=== PATIENT | male | born 1955 | race Caucasian/White ===

== ENCOUNTER 2017-03-17 07:55 | Outpatient (RCR) | payer BC, OTHER ==
[2017-01-29 16:40] LABS: BLOOD UREA NITROGEN 13 MG/DL (7-18); BUN/CREATININE RATIO 16; CREATININE SERUM 0.82 MG/DL (0.60-1.30); GFR ESTIMATED > 60
== END 2017-04-29 | disposition home or self-care (01) ==
LOC: ONC 07:55
PROVIDERS: ATTEND Radiology Radiation Oncology
DX: Z51.0 Encounter for antineoplastic radiation therapy (principal); C20 Malignant neoplasm of rectum
CPT/HCPCS: 77301; 77334; 77336; 77338; 77385; 77386; 77470; 82565; 84520; 99214

== ENCOUNTER → 2019-02-10 | Outpatient (CLI) | payer BC ==
[~2019-02-10] MED LIST: CATHETER FLUSH 10 ML SYR IV PRN; DIATRIZOATE MEGLUM/SODIUM 37% 120 ML (GASTROGRAFIN) PO ONE; HOLD METFORMIN - RECEIVED CONTRAST 20 ML VIAL IV SCH; IOHEXOL 350 MG/ML 100 ML (OMNIPAQUE 350) VIAL IV ONE; NS 100 ML (IVPB) BAG IV ONE
[2019-02-10 08:55] LABS: BASOPHILS % (AUTO) 0 % (0-10); EOSINOPHILS % (AUTO) 6 % (0-10); HEMATOCRIT 44 % (40-54); HEMOGLOBIN 14.7 G/DL (13.3-17.7); LYMPHOCYTES # (AUTO) 0.8 X 10^3 (1.0-4.0); LYMPHOCYTES % (AUTO) 16 % (12-44); MEAN CORPUSCULAR HEMOGLOBIN 29 PG (25-34); MEAN CORPUSCULAR HGB CONC 34 G/DL (32-36); MEAN CORPUSCULAR VOLUME 87 FL (80-99); MEAN PLATELET VOLUME 9.5 FL (7.4-10.4); MONOCYTES # (AUTO) 0.3 X 10^3 (0.0-1.0); MONOCYTES % (AUTO) 6 % (0-12); NEUTROPHILS # (AUTO) 3.5 X 10^3 (1.8-7.8); NEUTROPHILS % (AUTO) 72 % (42-75); PLATELET COUNT 187 10^3/uL (130-400); RED CELL DISTRIBUTION WIDTH 14.3 % (10.0-14.5); WHITE BLOOD COUNT 4.9 10^3/uL (4.3-11.0)
[2019-02-10 08:56] LABS: EOSINOPHILS # (AUTO) 0.3 10^3/uL (0.0-0.3)
[2019-02-10 10:39] LABS: ALANINE AMINOTRANSFERASE 51 U/L (0-55); ALBUMIN 4.3 GM/DL (3.2-4.5); ALKALINE PHOSPHATASE 86 U/L (40-136); BILIRUBIN,TOTAL 0.5 MG/DL (0.1-1.0); BUN/CREATININE RATIO 19; CALCIUM 8.9 MG/DL (8.5-10.1); CARBON DIOXIDE 26 MMOL/L (21-32); CHLORIDE 100 MMOL/L (98-107); CREATININE SERUM 0.68 MG/DL (0.60-1.30); GFR ESTIMATED > 60; GLUCOSE 229 MG/DL (70-105); POTASSIUM 4.1 MMOL/L (3.6-5.0); SODIUM 139 MMOL/L (135-145)
--- NOTE | 2019-02-10 11:29 | Diagnostic Imaging Report ---
PROCEDURE: CT chest, abdomen, and pelvis with contrast. TECHNIQUE: Multiple contiguous axial images were obtained through the chest, abdomen, and pelvis after the administration of intravenous contrast. Auto Exposure Controls were utilized during the CT exam to meet ALARA standards for radiation dose reduction. INDICATION: Rectal carcinoma, followup. COMPARISON: Correlation is made with prior CT from 08/24/2018. CT CHEST: Right chest wall port appears to have its tip in the lower right internal jugular vein near the confluence with the SVC. No axillary lymphadenopathy is identified. There are calcified lymph nodes in the mediastinum in the right paratracheal and subcarinal location consistent with prior granulomatous exposure. No noncalcified mediastinal or hilar lymphadenopathy is identified. No pericardial or pleural fluid is identified. Pulmonary parenchymal evaluation demonstrates calcified granuloma in the superior segment of the left lower lobe. There is a tiny 2-3 mm noncalcified nodular density posterolateral left lower lobe, image #103 not appreciably changed from prior exam. No new nodules are seen to suggest metastatic disease. The bony structures are nonacute. IMPRESSION: Stable CT chest since study from 08/24/2018. No thoracic lymphadenopathy or evidence of pulmonary metastatic disease is identified. CT ABDOMEN AND PELVIS: Mild generalized hepatic steatosis is seen. No discrete liver mass is detected. The gallbladder is unremarkable. The pancreas and spleen are unremarkable. Adrenal glands are unremarkable. Small cortical low density anterior aspect of the upper pole left kidney is stable and most consistent with a small cyst. Postsurgical changes to the anterior cortex of the right kidney are noted and appear stable. No recurrent renal mass is identified. The aorta is non-aneurysmal. Central retroperitoneum is unremarkable for lymphadenopathy. No mesenteric lymphadenopathy is identified. Postsurgical changes of rectosigmoid resection are again noted with left lower quadrant ostomy. Presacral soft tissue thickening appears to be stable when compared with prior exam and again is likely post-therapeutic. No discrete mass is seen. No inguinal or iliac lymphadenopathy is identified. There is no ascites. Bladder is unremarkable. IMPRESSION: Overall stable CT of the abdomen and pelvis when compared with prior exam from 08/24/2018. No abdominal or pelvic lymphadenopathy or evidence of metastatic disease or tumor recurrence is identified. Dictated by: Dictated on workstation # [id number]
== END ==
LOC: RAD FS 08:12
PROVIDERS: ATTEND Internal Medicine Hematology & Oncology
DX: C20 Malignant neoplasm of rectum (principal); Z98.890 Other specified postprocedural states
CPT/HCPCS: 36415; 71260; 74177; 80053; 82378; 85025

== ENCOUNTER → 2019-08-02 | Outpatient (CLI) | payer BC ==
[~2019-08-02] MED LIST changes: -CATHETER FLUSH 10 ML SYR IV PRN; -DIATRIZOATE MEGLUM/SODIUM 37% 120 ML (GASTROGRAFIN) PO ONE; -IOHEXOL 350 MG/ML 100 ML (OMNIPAQUE 350) VIAL IV ONE; -NS 100 ML (IVPB) BAG IV ONE
[2019-08-02 09:54] LABS: HEMATOCRIT 44 % (40-54); HEMOGLOBIN 14.4 G/DL (13.3-17.7); LYMPHOCYTES % (AUTO) 18 % (12-44); MEAN CORPUSCULAR HEMOGLOBIN 29 PG (25-34); MEAN CORPUSCULAR HGB CONC 33 G/DL (32-36); MEAN CORPUSCULAR VOLUME 88 FL (80-99); MEAN PLATELET VOLUME 9.4 FL (7.4-10.4); MONOCYTES % (AUTO) 6 % (0-12); NEUTROPHILS % (AUTO) 69 % (42-75); PLATELET COUNT 216 10^3/uL (130-400); RED CELL DISTRIBUTION WIDTH 14.3 % (10.0-14.5); WHITE BLOOD COUNT 4.4 10^3/uL (4.3-11.0)
[2019-08-02 09:55] LABS: BASOPHILS % (AUTO) 1 % (0-10); EOSINOPHILS # (AUTO) 0.2 10^3/uL (0.0-0.3); EOSINOPHILS % (AUTO) 6 % (0-10); LYMPHOCYTES # (AUTO) 0.8 X 10^3 (1.0-4.0); MONOCYTES # (AUTO) 0.3 X 10^3 (0.0-1.0)
[2019-08-02 10:07] LABS: POTASSIUM 4.1 MMOL/L (3.6-5.0); SODIUM 140 MMOL/L (135-145)
[2019-08-02 10:08] LABS: ALANINE AMINOTRANSFERASE 35 U/L (0-55); ALBUMIN 4.2 GM/DL (3.2-4.5); ALKALINE PHOSPHATASE 82 U/L (40-136); BILIRUBIN,TOTAL 0.5 MG/DL (0.1-1.0); BUN/CREATININE RATIO 16; CARBON DIOXIDE 24 MMOL/L (21-32); CHLORIDE 103 MMOL/L (98-107); GFR ESTIMATED > 60; GLUCOSE 221 MG/DL (70-105); TOTAL PROTEIN 7.1 GM/DL (6.4-8.2)
[2019-08-02] MEDS: CATHETER FLUSH 10 ML SYR IV PRN (11:04)
[2019-08-02] MEDS: DIATRIZOATE MEGLUM/SODIUM 37% 120 ML (GASTROGRAFIN) PO ONE (11:04)
[2019-08-02] MEDS: IOHEXOL 350 MG/ML 150 ML (OMNIPAQUE 350) VIAL IV ONE (11:04)
[2019-08-02] MEDS: NS 100 ML (IVPB) BAG IV ONE (11:04)
--- NOTE | 2019-08-02 11:42 | Diagnostic Imaging Report ---
PROCEDURE: CT chest, abdomen, and pelvis with contrast. TECHNIQUE: Multiple contiguous axial images were obtained through the chest, abdomen, and pelvis after the administration of intravenous contrast. Auto Exposure Controls were utilized during the CT exam to meet ALARA standards for radiation dose reduction. INDICATION: Malignant neoplasm of the rectum. The study is performed for follow-up. COMPARISON: Correlation is made with prior CT from 02/10/2019. CT CHEST: Right chest wall port remains in place. No axillary lymphadenopathy is seen. Previously noted calcified lymph nodes in the manuel and mediastinum are again noted. No noncalcified enlarged nodes are seen. There is no pericardial or pleural fluid. Tiny subpleural nodule in the left lower lobe is stable. No new mass is seen. No infiltrate is identified. IMPRESSION: Continued stable CT chest since exam from 02/10/2019. There is no evidence of thoracic lymphadenopathy or pulmonary metastatic disease. CT ABDOMEN AND PELVIS: Hepatic steatosis is again seen. There is no discrete liver mass identified. No biliary ductal dilatation is identified. The gallbladder is unremarkable. Pancreas and spleen are unremarkable. No adrenal mass is seen. Postsurgical changes to the right kidney anteriorly are again noted. Tiny cortical low density in the upper pole of the left kidney is stable. Aorta is non-aneurysmal. Postsurgical changes in the pelvis are again noted. There has been resection of the rectum with left lower quadrant ostomy. Presacral soft tissue thickening is similar to prior exam. No definite pelvic lymphadenopathy is seen. No central retroperitoneal or mesenteric lymphadenopathy is seen. Bladder is unremarkable. Bony structures are nonacute. IMPRESSION: Stable CT abdomen and pelvis since exam from 02/10/2019. There are post-therapeutic changes, as described. No definite abdominal or pelvic lymphadenopathy or evidence of metastatic disease is detected. Dictated by: Dictated on workstation # [id number]
== END ==
LOC: RAD FS 09:08
PROVIDERS: ATTEND Internal Medicine Hematology & Oncology
DX: C20 Malignant neoplasm of rectum (principal); Z95.828 Presence of other vascular implants and grafts; Z98.890 Other specified postprocedural states
CPT/HCPCS: 36415; 71260; 74177; 80053; 82378; 85025

== ENCOUNTER → 2020-01-31 | Outpatient (CLI) | payer BC ==
[~2020-01-31] MED LIST changes: +CATHETER FLUSH 10 ML SYR IV PRN; +DIATRIZOATE MEGLUM/SODIUM 37% 120 ML (GASTROGRAFIN) PO ONE; +IOHEXOL 350 MG/ML 100 ML (OMNIPAQUE 350) VIAL IV ONE; +NS 100 ML (IVPB) BAG IV ONE
[2020-01-31 10:15] LABS: HEMATOCRIT 42 % (40-54); HEMOGLOBIN 14.3 G/DL (13.3-17.7); MEAN CORPUSCULAR HEMOGLOBIN 29 PG (25-34); MEAN CORPUSCULAR HGB CONC 34 G/DL (32-36); MEAN CORPUSCULAR VOLUME 86 FL (80-99); WHITE BLOOD COUNT 4.3 10^3/uL (4.3-11.0)
[2020-01-31 10:16] LABS: BASOPHILS % (AUTO) 1 % (0-10); EOSINOPHILS # (AUTO) 0.2 10^3/uL (0.0-0.3); EOSINOPHILS % (AUTO) 4 % (0-10); LYMPHOCYTES # (AUTO) 0.9 X 10^3 (1.0-4.0); LYMPHOCYTES % (AUTO) 21 % (12-44); MEAN PLATELET VOLUME 9.5 FL (7.4-10.4); MONOCYTES # (AUTO) 0.3 X 10^3 (0.0-1.0); MONOCYTES % (AUTO) 6 % (0-12); NEUTROPHILS # (AUTO) 2.9 X 10^3 (1.8-7.8); NEUTROPHILS % (AUTO) 68 % (42-75); PLATELET COUNT 230 10^3/uL (130-400); RED CELL DISTRIBUTION WIDTH 14.2 % (10.0-14.5)
[2020-01-31 10:31] LABS: POTASSIUM 4.1 MMOL/L (3.6-5.0); SODIUM 138 MMOL/L (135-145)
[2020-01-31 10:32] LABS: ALANINE AMINOTRANSFERASE 25 U/L (0-55); ALBUMIN 4.4 GM/DL (3.2-4.5); ALKALINE PHOSPHATASE 79 U/L (40-136); BILIRUBIN,TOTAL 0.7 MG/DL (0.1-1.0); BUN/CREATININE RATIO 18; CALCIUM 9.1 MG/DL (8.5-10.1); CARBON DIOXIDE 25 MMOL/L (21-32); CHLORIDE 101 MMOL/L (98-107); CREATININE SERUM 0.73 MG/DL (0.60-1.30); GFR ESTIMATED > 60; GLUCOSE 163 MG/DL (70-105); TOTAL PROTEIN 6.9 GM/DL (6.4-8.2)
--- NOTE | 2020-01-31 11:44 | Diagnostic Imaging Report ---
EXAMINATION: CT Chest, Abdomen and Pelvis with intravenous contrast. TECHNIQUE: Multiple contiguous axial images were obtained through the chest, abdomen and pelvis after the uneventful administration of intravenous contrast. All CT scans use one or more of the following dose optimizing techniques: automated exposure control, MA and/or KvP adjustment based on a patient size and exam type, or iterative reconstruction. HISTORY: Malignant neoplasm of the rectum. Currently asymptomatic. COMPARISON: 08/02/2019. FINDINGS: CT CHEST: The heart size is within normal limits. No pericardial effusion is present. There is no mediastinal, hilar, or axillary lymphadenopathy. Calcified mediastinal and left hilar lymph nodes are present. The lungs demonstrate no pulmonary nodules or masses. Scattered calcified granulomas are noted. There are no focal areas of consolidation. No central endobronchial obstructing lesions are identified. There are no pleural effusions or pneumothorax. The osseous structures demonstrate no acute abnormalities. CT ABDOMEN AND PELVIS: There is hepatic steatosis. No focal hepatic lesions are seen. The gallbladder is unremarkable. The portal vein is patent. The spleen, pancreas, adrenal glands, and kidneys have a normal appearance. There is no pathologically enlarged mesenteric or retroperitoneal adenopathy. Postsurgical changes of left hemicolectomy are again visualized with colostomy in the left hemiabdomen. Nonspecific presacral soft tissue thickening is again visualized, not significantly changed compared to the prior exam. The bowel loops are nondilated. The appendix is visualized and has a normal appearance. There is no free fluid or free air. The osseous structures demonstrate no acute abnormalities. There is calcified aortic and iliac atherosclerotic plaque without aneurysm. Ureters and bladder have a normal appearance. There is no free air, loculated collection, or adenopathy in the pelvis. IMPRESSION: 1. Posttreatment changes are again visualized of left hemicolectomy and colostomy in the left hemiabdomen. Stable nonspecific presacral soft tissue thickening is present. No evidence of pathologically enlarged lymphadenopathy or metastatic disease in the chest, abdomen or pelvis. 2. Hepatic steatosis. Dictated by: Dictated on workstation # [id number]
== END ==
LOC: RAD FS 09:35
PROVIDERS: ATTEND Internal Medicine Hematology & Oncology
DX: C20 Malignant neoplasm of rectum (principal); K76.0 Fatty (change of) liver, not elsewhere classified
CPT/HCPCS: 36415; 71260; 74177; 80053; 82378; 85025

== ENCOUNTER → 2020-06-27 | Outpatient (CLI) | payer BC ==
[~2020-06-27] MED LIST changes: -DIATRIZOATE MEGLUM/SODIUM 37% 120 ML (GASTROGRAFIN) PO ONE
[2020-06-27 10:21] LABS: BUN/CREATININE RATIO 18; CALCIUM 8.8 MG/DL (8.5-10.1); CARBON DIOXIDE 24 MMOL/L (21-32); CHLORIDE 100 MMOL/L (98-107); CREATININE SERUM 0.74 MG/DL (0.60-1.30); GFR ESTIMATED > 60; GLUCOSE 169 MG/DL (70-105); SODIUM 138 MMOL/L (135-145)
--- NOTE | 2020-06-27 12:51 | Diagnostic Imaging Report ---
PROCEDURE: CT abdomen and pelvis with and without contrast. TECHNIQUE: Precontrast acquisitions were acquired through the abdomen and pelvis. Multiple contiguous axial images were obtained through the abdomen and pelvis after the administration of intravenous contrast. Auto Exposure Controls were utilized during the CT exam to meet ALARA standards for radiation dose reduction. INDICATION: Renal cell carcinoma and nephrolithiasis. History of rectal cancer. FINDINGS: The heart size is normal. Lung bases are clear. The liver is normal in size without focal lesions. Gallbladder is unremarkable. There is no biliary ductal dilatation. Spleen is normal. The pancreas and adrenal glands are unremarkable. There are postsurgical changes in the right kidney. There is a small cyst in the left kidney. There is no evidence of nephrolithiasis or obstructive uropathy. The aorta is nonaneurysmal. There is a left lower quadrant colostomy. The bowel gas pattern is nonspecific. There is no free air. There is no ascites. No focal inflammatory changes. Bladder is normal. Sacral soft tissue thickening has decreased. There is no pelvic mass or adenopathy. There are degenerative changes in the spine. IMPRESSION: Interval changes in the right kidney. Small left renal cyst. The presacral soft tissue thickening has decreased. There is no new pelvic mass or adenopathy. No other acute abnormality in the abdomen or pelvis. Dictated by: Dictated on workstation # [id number]
== END ==
LOC: LAB FS 09:38
PROVIDERS: ATTEND Urology
DX: C64.1 Malignant neoplasm of right kidney, except renal pelvis (principal); N20.0 Calculus of kidney; Z85.048 Personal history of other malignant neoplasm of rectum, rectosigmoid junction, and anus
CPT/HCPCS: 36415; 74178; 80048